=== PATIENT | male | born 1930 | race Caucasian/White ===

== ENCOUNTER → 2019-08-12 | Outpatient (CLI) | payer MEDICARE, OTHER ==
[~2019-08-12] VITALS: Ht 162.6 cm; Wt 86.0 kg
[~2019-08-12] MED LIST: AMIO100T4 PO; ASPI-728 PO; ATEN-187 PO; CHOL200078 PO; CINN500C4 PO; COLE625 PO; CYAN500T65 PO; DUTASTERIDE PO; FINA-27 PO; FURO20 PO; KDUR20 PO; LORA10TA7 PO; MELO-108 PO; OMEG1CAP45 PO; PRAM0.258 PO; PYRI100T19 PO
[2019-08-12 10:03] VITALS: BP 123/68
== END | disposition home or self-care (01) ==
LOC: SRCNTR 10:01
PROVIDERS: ATTEND Hospitalist
DX: I49.9 Cardiac arrhythmia, unspecified (principal); R97.20 Elevated prostate specific antigen [PSA]; M19.90 Unspecified osteoarthritis, unspecified site; I25.10 Atherosclerotic heart disease of native coronary artery without angina pectoris; G62.9 Polyneuropathy, unspecified; M20.42 Other hammer toe(s) (acquired), left foot; M20.41 Other hammer toe(s) (acquired), right foot
CPT/HCPCS: G0463

== ENCOUNTER → 2020-01-13 | Outpatient (CLI) | payer MEDICARE, OTHER ==
[~2020-01-13] MED LIST changes: -KDUR20 PO; +POTA20TA83 PO
[2020-01-13 09:42] LABS: BASOPHILS % (AUTO) 0.9 % (0.0-2.0); HEMATOCRIT 42.5 % (41-53); HEMOGLOBIN 14.6 g/dL (13.5-17.5); LYMPHOCYTES # (AUTO) 1.1 K/uL (1.0-4.8); LYMPHOCYTES % (AUTO) 23.5 % (22.0-44.0); MEAN CORPUSCULAR HEMOGLOBIN 34.8 pg (26.0-34.0); MEAN CORPUSCULAR HGB CONC 34.4 G/dL (31.0-37.0); MEAN CORPUSCULAR VOLUME 101 fL (80-100); MONOCYTES # (AUTO) 0.6 K/uL (0.1-1.0); MONOCYTES % (AUTO) 13.5 % (2.0-9.0); NEUTROPHILS # (AUTO) 2.6 K/uL (1.8-7.7); NEUTROPHILS % (AUTO) 57.1 % (40.0-70.0); PLATELET COUNT (AUTO) 138 K/uL (150-450); RED CELL DISTRIBUTION WIDTH 13.3 % (11.5-14.5)
[2020-01-13 09:58] LABS: INR 1.1 (0.9-1.1); PROTHROMBIN TIME 11.9 SEC (9.4-11.6)
== END | disposition home or self-care (01) ==
LOC: LABPV 08:58
PROVIDERS: ATTEND Orthopaedic Surgery
DX: Z01.812 Encounter for preprocedural laboratory examination (principal); M79.609 Pain in unspecified limb; R53.81 Other malaise; Z79.899 Other long term (current) drug therapy

== ENCOUNTER 2020-01-17 07:22 | Day surgery (SDC) | payer MEDICARE, OTHER ==
[~2020-01-17] VITALS: Ht 165.1 cm; Wt 81.8 kg
[~2020-01-17 07:22] MED LIST changes: +SODIUM CHLORIDE 0.9% 1,000 ML IV ONE; +SODIUM CHLORIDE 0.9% 1,000 ML ONE
[2020-01-17 08:08] LABS: ANION GAP 5 mmol/L (8-16); CALCIUM, TOTAL 9.7 mg/dL (8.8-10.5); CARBON DIOXIDE 29 mmol/L (22-29); CHLORIDE 99 mmol/L (98-107); CREATININE 0.87 mg/dL (0.60-1.30); GLUCOSE,RANDOM 103 mg/dL (70-110); POTASSIUM 4.4 mmol/L (3.5-5.1); SODIUM SERUM 133 mmol/L (136-145); UREA NITROGEN, BLOOD 33 mg/dL (7-18)
[2020-01-17 08:09] LABS: GLOMERULAR FILTR. RATE CALC > 60 mL/min (>60)
== END 2020-01-17 08:25 | disposition home or self-care (01) ==
LOC: SURGERY 07:22 → EDSTATUS 09:00
PROVIDERS: ATTEND Orthopaedic Surgery
DX: M54.5 Low back pain (principal); Z53.8 Procedure and treatment not carried out for other reasons; M48.02 Spinal stenosis, cervical region; M48.061 Spinal stenosis, lumbar region without neurogenic claudication; Z11.59 Encounter for screening for other viral diseases
CPT/HCPCS: 36415; 80048; 87635; 93005; J7030

== ENCOUNTER 2020-01-23 07:36 | Outpatient (CLI) | payer MEDICARE, OTHER ==
[~2020-01-23] VITALS: Ht 165.1 cm; Wt 78.6 kg
[~2020-01-23 07:36] MED LIST changes: -AMIO100T4 PO; +APIX5TAB PO; -DUTASTERIDE PO; -SODIUM CHLORIDE 0.9% 1,000 ML IV ONE; -SODIUM CHLORIDE 0.9% 1,000 ML ONE; +VITA1CAP17 PO
[2020-01-23] MEDS ORDERED: SODIUM CHLORIDE 0.9% 1,000 ML IV ONE (08:00)
[2020-01-23] MEDS ORDERED: LIDOCAINE/PF 1% 30 ML VIAL ONE (10:28)
== END 2020-01-23 12:50 | disposition home or self-care (01) ==
LOC: RADMN 07:36
PROVIDERS: ATTEND Orthopaedic Surgery
DX: M25.78 Osteophyte, vertebrae (principal); M43.22 Fusion of spine, cervical region
CPT/HCPCS: 62284; 72052; 72114; 72125; 72131; 77003; J3490